=== PATIENT | female | born 1985 | race Caucasian/White ===

== ENCOUNTER 2018-04-05 11:03 | Day surgery (SDC) | payer OTHER ==
[2018-04-05] MEDS: LIDOCAINE 2% (MDV) 20 ML INJ INJ
[2018-04-05] MEDS: BUPIVACAINE 0.5% 30 ML VIAL INJ
[2018-04-05] MEDS: BUPIVACAINE 0.25% (MPF) 30 ML INJ INJ
[2018-04-05] MEDS ORDERED: CEFAZOLIN 1 GM/50 ML (PMX) 50 ML IVPB (12:00)
[2018-04-05] MEDS ORDERED: SOD CHLORIDE 0.9% 1,000 ML IV (12:00)
[2018-04-05] MEDS ORDERED: BUPIVACAINE 0.5% (SDV) 30 ML INJ (13:04)
[2018-04-05] MEDS ORDERED: LIDOCAINE 2% (MDV) 20 ML INJ (13:04)
[2018-04-05] MEDS ORDERED: BUPIVACAINE 0.25% (MPF) 30 ML INJ (13:40)
[2018-04-05] MEDS ORDERED: FENTAnyl 50 MCG/ML VIAL ×2 (13:41→14:03)
[2018-04-05] MEDS ORDERED: MIDAZOLAM 1 MG/ML 2 ML INJ (13:41)
[2018-04-05] MEDS ORDERED: LIDOCAINE 2% (SDV) 5 ML INJ (14:14)
[2018-04-05] MEDS ORDERED: PROPOFOL 20 ML (14:14)
[2018-04-05] MEDS ORDERED: CEFAZOLIN 1 GM INJ (14:15)
[2018-04-05] MEDS ORDERED: ONDANSETRON 4 MG INJ (14:16)
[2018-04-05] MEDS: FENTAnyl 50 MCG/ML VIAL IV (14:57)
[2018-04-05] MEDS: METOCLOPRAMIDE 10 MG INJ IV (14:57)
[2018-04-05] MEDS: HYDROCODONE/APAP (5/325) TAB PO (14:58)
[2018-04-05] MEDS ORDERED: MEPERIDINE 25 MG INJ IV (15:00)
[2018-04-05] MEDS ORDERED: DIPHENHYDRAMINE 50 MG INJ IV (15:00)
[2018-04-05] MEDS ORDERED: ONDANSETRON 4 MG INJ IV (15:00)
== END 2018-04-05 16:49 | disposition home or self-care (01) ==
LOC: SDS 11:03
DX: D17.21 Benign lipomatous neoplasm of skin and subcutaneous tissue of right arm (principal)
CPT/HCPCS: 24071; 88307